=== PATIENT | female | born 1980 | race Caucasian/White ===

== ENCOUNTER 2021-05-16 05:30 | Inpatient (IN) ==
--- NOTE | 2021-05-11 09:59 | Anesthesiology Consultation ---
Date of Service May 11, 2021 Assessment & Plan Chart Review Chart Review: Acceptable Risk for Surgery and Patient NOT seen in Pre Admission Testing History Surgery Operation Date: 05/16/21 07:30 Proposed Procedures p Section (Delivery of Baby Through Abdominal Incision) - Becki Heath MD Height/Weight Height: 5 ft 7 in Weight: 83.007 kg Allergies Allergy/AdvReac Type Severity Reaction Status Date / Time No Known Allergies Allergy Verified 05/11/21 09:54 Medications Home Medications Medication Instructions Recorded Confirmed Last Taken cetirizine 10 mg capsule (Zyrtec) 10 mg PO DAILY PRN 10/08/20 05/11/21 Unknown multivitamin 1 tab PO QAM 10/08/20 05/11/21 Unknown omeprazole 20 mg PO QAM 11/09/20 05/11/21 Unknown acetone (urine) test (Ketone Urine #50 ea 11/18/20 05/11/21 Unknown Test) blood sugar diagnostic (OneTouch #150 ea 11/18/20 05/11/21 Unknown Ultra Blue Test Strip) lancets 33 gauge (OneTouch Delica #150 ea 11/18/20 05/11/21 Unknown Lancets) pen needle, diabetic 32 gauge x #100 ea 04/08/21 05/11/21 Unknown 5/32" (BD Ultra-Fine Radha Pen Needle) guaifenesin [Robitussin Chest 20 ml PO TID PRN 05/09/21 05/11/21 Unknown Congestion] insulin NPH isoph U-100 human 100 30 unit SUBCUT QPM 05/11/21 05/11/21 Unknown unit/mL (3 mL) subcutaneous pen (Novolin N Flexpen) magnesium 200 mg tablet 200 mg PO QAM 05/11/21 05/11/21 Unknown Past Medical History Medical History GERD (gastroesophageal reflux disease) Gestational diabetes ON INSULIN History of COVID-19 DX'D EARLY 01/[address] THRU [place]-FATIGUE, SORE THROAT,CHILLS, DECREASED SMELL, COUGH-RECOVERED AT HOME-SYMPTOMS RESOLVED Ulnar neuropathy of right upper extremity RESOLVED Past Family History Family History Mother Glaucoma Hypertension Father Glaucoma Hypertension Grandmother (Maternal) Family history of diabetes mellitus Past Surgical History Surgical History H/O cone biopsy of cervix S/P section x2 S/P knee surgery MULTIPLE Social History Smoking Status: Former smoker Do You Dip or Chew Tobacco: No Smoking End Date: QUIT 2010 Hx Alcohol Use: Yes Alcohol type: beer, wine and hard liquor alcohol intake frequency: a few times a week Alcohol Intake Frequency Comment: NOT Hx Substance Use: No
[2021-05-16] MEDS ORDERED: LACTATED RINGER'S 1,000 ML IV SCH ×2 (05:45→12:00)
[2021-05-16 06:06] LABS: Basophils # (auto) 0.03 K/uL (0-0.2); Basophils % (auto) 0.4 %; Eosinophils # (auto) 0.19 K/uL (0-0.5); Eosinophils % (auto) 2.3 %; Hemoglobin 11.1 g/dL (12.0-16.0); Immature Granulocytes # (auto) 0.01 K/uL (0.00-0.02); Immature Granulocytes % (auto) 0.1 %; Lymphocytes # (auto) 1.43 K/uL (1.2-3.4); Mean Corpuscular Hemoglobin 26.4 pg (25-34); Mean Corpuscular Hgb Conc 31.7 g/dL (32-36); Mean Corpuscular Volume 83.1 fL (80-100); Mean Platelet Volume 12.9 fL (7.4-10.4); Monocytes # (auto) 0.55 K/uL (0.11-0.59); Monocytes % (auto) 6.5 %; Neutrophils # (auto) 6.21 K/uL (1.4-6.5); Neutrophils % (auto) 73.7 %; Platelet Count 231 K/uL (130-400); RDW Coefficient of Variation 14.4 % (11.5-14.5); RDW Standard Deviation 43.7 fL (36.4-46.3); Red Blood Count 4.21 M/uL (4.2-5.4); White Blood Count 8.42 K/uL (4.8-10.8)
[2021-05-16] MEDS ORDERED: ceFAZolin 2000MG 2,000 MG/15 ML SYR IV STA (06:09)
[2021-05-16] MEDS ORDERED: CITRIC ACID/SODIUM CITRATE 15 ML UDC PO STA (06:09)
[2021-05-16] MEDS ORDERED: MoRPHine SULFATE PF 1 MG/ML 10 ML AMP/VIAL ONE (07:17)
[2021-05-16] MEDS ORDERED: ePHEDrine sulfate 50 MG/ML AMP IV PRN (07:45)
[2021-05-16] MEDS ORDERED: ONDANSETRON INJ 2 MG/ML 2 ML VIAL IV PRN (07:45)
[2021-05-16] MEDS ORDERED: NALOXONE HCL 0.08 MG in SYRINGE 1.8 ML IV PRN (07:45)
[2021-05-16] MEDS ORDERED: HYDROmorphone INJ 0.5 MG/0.5 ML SYR IV PRN (07:45)
[2021-05-16] MEDS ORDERED: NO NARCOTICS OR SEDATIVES SCH (07:45)
[2021-05-16] MEDS ORDERED: SODIUM CHLORIDE 0.9% 1000ML 1,000 ML IV SCH (07:45)
[2021-05-16] MEDS ORDERED: NALOXONE HCL 0.4 MG/1 ML VIAL/CARP IV PRN (07:45)
[2021-05-16] MEDS ORDERED: KETOROLAC 30 MG/ML VIAL IV PRN (07:45)
[2021-05-16] MEDS ORDERED: NALBUPHINE HCL INJ 10 MG/ML AMP IV PRN (07:45)
[2021-05-16] MEDS ORDERED: DC INTRASPINAL MORPHINE SCH (07:45)
[2021-05-16] MEDS ORDERED: diphenhydrAMINE 50 MG/ML VIAL IV PRN (07:45)
[2021-05-16] MEDS ORDERED: LACTATED RINGER'S 500 ML IV PRN (07:45)
[2021-05-16] MEDS ORDERED: PROMETHAZINE HCL 12.5 MG in SODIUM CHLORIDE 0.9% 50 ML IV PRN (07:45)
[2021-05-16] MEDS ORDERED: METOCLOPRAMIDE HCL 10 MG in SODIUM CHLORIDE 0.9% 50 ML IV PRN (07:45)
[2021-05-16] MEDS ORDERED: NALOXONE HCL 1 MG in SODIUM CHLORIDE 0.9% 1000ML 1,000 ML IV PRN (07:45)
[2021-05-16] MEDS ORDERED: MEPERIDINE HCL 25 MG/ML CARP/VIAL IV PRN (07:45)
[2021-05-16] MEDS ORDERED: MoRPHine SULFATE 2 MG/ML CARP IV PRN (07:45)
[2021-05-16] MEDS ORDERED: MoRPHine SULFATE PF 1 MG/ML 10 ML AMP/VIAL INT SPINAL ONE (07:45)
--- NOTE | 2021-05-16 08:34 | History & Physical Bridge Note ---
Date of Service May 16, 2021 History & Physical Bridge Note I have examined the patient, reviewed the History & Physical and in the interval since the performance of the History & Physical I have noted the following changes of clinical significance: no changes noted. 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 She had FSBG checked and was asked to notify us of symptoms of hypoglycemia if they occurred, so glucose could be added to her IV if needed, as she is NPO and GDM. Now, at 0830, that infant is about to be transferred via air, and we will then be able to proceed with Sydnie's case. She has been kept informed, and we will proceed as soon as the peds team is available. There are no changes to Sydnie's own medical situation and no new questions from herself or her FOB this morning.
[2021-05-16] MEDS ORDERED: BENZOCAINE 20% AER SPR 82.5 GM CAN EXT PRN (11:49)
[2021-05-16] MEDS ORDERED: SENNA 8.6 MG TAB PO PRN (11:49)
[2021-05-16] MEDS ORDERED: DIPHTHERIA/TETANUS/PERTUSSIS 0.5 ML SYR/VIAL IM ONE (11:49)
[2021-05-16] MEDS ORDERED: SUPERCREAM 0.870% 15 GM JAR EXT PRN (11:49)
[2021-05-16] MEDS ORDERED: HYDROCORTISONE ACETATE 25 MG SUPP PR PRN (11:49)
[2021-05-16] MEDS ORDERED: MAGNESIUM HYDROXIDE SUSP 30 ML UDC PO PRN (11:49)
[2021-05-16] MEDS ORDERED: OXYTOCIN 20 UNITS in LACTATED RINGER'S 1,000 ML IV SCH (12:00)
--- NOTE | 2021-05-16 12:05 | Operative Report ---
PG Post Operative Report Pre & Post Diagnosis Operation Date: 05/16/21 07:30 1) Prior section x2 2) Desires sterilization I identified the patient and participated in the time-out.: Yes Procedure Operation Date: 05/16/21 07:30 Actual Procedures Repeat Low Transverse Section Bilateral Tubal Ligation via modified Natalio Surgeon Becki Heath MD Manager Employee Benefits Desirae Estimated Blood Loss 600 Findings Consistent with Post-Op Diagnosis As below Specimens Placenta for hold, cord blood Anesthesia Type Spinal Complications none Disposition Accompanied Patient To Recovery: Yes Disposition: L&D Description of Procedure The patient was placed operating table in the supine position with a leftward tilt. She was prepped and draped in standard sterile fashion. The anesthetic was tested and found to be adequate. A time-out was held, identifying correct patient, procedure, positioning and preoperative antibiotics. There were no concerns. A Pfannenstiel skin incision was made with a knife, excising the prior scar, and taken down to the underlying layer of fascia. The fascia was incised in the midline with the knife and taken out laterally with scissors. The superior edge of the fascial incision was grasped, elevated and dissected off the underlying rectus both superiorly and inferiorly. The muscles were bluntly in the midline. The peritoneum was entered bluntly. The incision was then stretched. The bladder retractor was placed. The vesicouterine peritoneum was identified, entered with scissors and taken out laterally with scissors. The bladder flap was created digitally. A hysterotomy incision was created transversely in the lower uterine segment, final entry being accomplished in a blunt manner with the through operator's fingers. Clear amniotic fluid was encountered. The through operator's hand was used to elevate the head to the hysterotomy. The head was delivered using mild fundal pressure, and the shoulders and body followed without difficulty. The cord was clamped and cut and the was then handed off to the awaiting hadoop analyst. Cord blood was obtained. The placenta was Manually extracted. The uterus was exteriorized and cleared of all clot and debris with moistened laparotomy sponges. The hysterotomy incision was repaired in two layers, the first in a running locked layer, the second in an imbricating layer. The ovaries and tubes were seen to be normal bilaterally. Modified [place] method was used to isolate a knuckle of each fallopian tube with a double-ligature of chromic gut suture, then excise the knuckle of fallopian tube sharply. Excellent hemostasis was noted at the cut ends. The uterus was gently replaced in the abdomen. A final inspection of the hysterotomy revealed good hemostasis. The rectus muscles were allowed to reap proximate naturally. The fascia was then reapproximated with 1 Vicryl in a running nonlocked manner. The fascia was examined and found to be free of defect following closure. The subcutaneous tissue was copiously irrigated and reapproximated with 0-chromic, then the skin edges were closed with 4-0 monocryl in a subcuticular fashion. A dermabond dressing was applied. The conner was found to be draining clear yellow urine at completion of the procedure. I attest to the content of the Intraoperative Record and any orders documented therein. Any exceptions are noted below. I attest to the content of the Intraoperative Record and any orders documented therein. Any exceptions are noted below. OB Procedure Charges [id number] Add on Tubal for C/S
[2021-05-16] MEDS ORDERED: OXYTOCIN 10 UNITS/ML VIAL ONE (12:20)
[2021-05-16] MEDS ORDERED: ePHEDrine sulfate 50 MG/ML SYR ONE (12:20)
[2021-05-16] MEDS ORDERED: KETOROLAC 30 MG/ML VIAL ONE (12:58)
[2021-05-16] MEDS: SIMETHICONE 80 MG CHEW PO SCH ×3 (13:06→20:33)
--- NOTE | 2021-05-16 15:12 | Anesthesiology Progress Note ---
Date of Service May 16, 2021 Anesthesia Post Procedure Vital Signs Vital Signs: Temp Pulse Resp BP Pulse Ox 05/16/21 15:08 82 97 05/16/21 15:03 75 97 05/16/21 14:58 76 98 05/16/21 14:53 83 97 05/16/21 14:48 80 97 05/16/21 14:43 78 98 05/16/21 14:38 81 97 05/16/21 14:33 83 97 05/16/21 14:28 75 98 05/16/21 14:26 68 125/78 05/16/21 14:23 66 98 05/16/21 14:18 74 99 05/16/21 14:16 36.1 C L 70 128/80 05/16/21 14:13 65 98 05/16/21 14:08 76 98 05/16/21 14:06 76 120/81 05/16/21 14:03 76 98 05/16/21 13:58 80 98 05/16/21 13:56 73 123/80 05/16/21 13:53 81 98 05/16/21 13:49 36.2 C L 05/16/21 13:48 76 99 05/16/21 13:46 61 18 117/81 05/16/21 13:43 61 98 05/16/21 13:38 70 98 05/16/21 13:37 36.4 C L 18 05/16/21 13:36 66 120/80 05/16/21 13:35 36.4 C L 05/16/21 13:33 72 98 05/16/21 13:28 67 97 05/16/21 13:26 67 128/79 05/16/21 13:23 66 97 05/16/21 13:20 36.1 C L 05/16/21 13:18 76 95 05/16/21 13:16 36.1 C L 69 131/86 05/16/21 13:13 76 98 05/16/21 13:08 63 96 05/16/21 13:06 75 18 129/81 05/16/21 13:05 36.4 C L 05/16/21 13:03 65 96 05/16/21 12:59 63 126/81 05/16/21 12:58 65 96 05/16/21 12:56 62 16 126/86 05/16/21 12:53 75 98 05/16/21 12:48 35.9 C L 68 97 05/16/21 12:46 69 16 123/79 05/16/21 12:43 66 97 05/16/21 12:38 71 98 05/16/21 12:36 77 18 127/84 05/16/21 12:35 35.9 C L 05/16/21 12:33 68 98 05/16/21 12:28 73 99 05/16/21 12:26 74 16 122/71 05/16/21 12:23 72 98 05/16/21 12:18 79 98 05/16/21 12:17 74 94 05/16/21 12:16 35.9 C L 18 05/16/21 12:15 75 123/77 05/16/21 12:13 83 98 05/16/21 06:56 82 135/92 05/16/21 06:18 80 128/87 05/16/21 06:08 87 133/92 05/16/21 05:58 36.5 C 18 05/16/21 05:47 75 134/95 Pain Intensity Ribs: Pain Intensity: 7 Lower Abdomen: Pain Intensity: 6 Transfer of Care Handoff Completed per policy Notes Mental Status: alert / awake / arousable and participated in evaluation Patient Amnestic to Procedure: Yes Nausea / Vomiting: adequately controlled Pain: adequately controlled Airway Patency, RR, SpO2: stable & adequate BP & HR: stable & adequate Hydration State: stable & adequate Neuraxial Anesthesia: was administered and sensory block is resolving Anesthetic Complications: no major complications apparent
[2021-05-16] MEDS ORDERED: D5W AND LACTATED RINGERS 1,000 ML IV SCH (17:30)
[2021-05-16] MEDS ORDERED: OXYTOCIN 20 UNITS in D5W AND LACTATED RINGERS 1,000 ML IV SCH (18:30)
[2021-05-16] MEDS ORDERED: Nursing to Pharmacy Communication SCH (19:00)
[2021-05-16] MEDS: DOCUSATE SODIUM 100 MG CAP PO SCH (20:33)
[2021-05-17] MEDS ORDERED: DC INTRASPINAL MORPHINE SCH (01:45)
[2021-05-17] MEDS ORDERED: NALOXONE HCL 0.4 MG/1 ML VIAL/CARP IV PRN (01:46)
[2021-05-17] MEDS ORDERED: KETOROLAC 30 MG/ML VIAL IV PRN ×2 (01:46)
[2021-05-17] MEDS ORDERED: diphenhydrAMINE 50 MG/ML VIAL IV PRN ×2 (01:46)
[2021-05-17] MEDS ORDERED: ONDANSETRON INJ 2 MG/ML 2 ML VIAL IV PRN (01:46)
[2021-05-17] MEDS ORDERED: HYDROmorphone INJ 0.5 MG/0.5 ML SYR IV PRN (01:46)
[2021-05-17] MEDS ORDERED: PROMETHAZINE HCL 12.5 MG in SODIUM CHLORIDE 0.9% 50 ML IV PRN (01:46)
[2021-05-17] MEDS ORDERED: MEPERIDINE HCL 25 MG/ML CARP/VIAL IV PRN (01:46)
[2021-05-17] MEDS ORDERED: NALOXONE HCL 1 MG in SODIUM CHLORIDE 0.9% 1000ML 1,000 ML IV PRN (01:46)
[2021-05-17] MEDS ORDERED: MEPERIDINE HCL 50 MG/ML CARP IV PRN (01:46)
[2021-05-17] MEDS ORDERED: NALBUPHINE HCL INJ 10 MG/ML AMP IV PRN (01:46)
[2021-05-17] MEDS ORDERED: METOCLOPRAMIDE HCL 10 MG in SODIUM CHLORIDE 0.9% 50 ML IV PRN (01:46)
[2021-05-17] MEDS ORDERED: diphenhydrAMINE Capsule 25 MG CAP PO PRN (01:46)
[2021-05-17] MEDS ORDERED: MoRPHine SULFATE 2 MG/ML CARP IV PRN (01:46)
[2021-05-17] MEDS ORDERED: NALOXONE HCL 0.08 MG in SYRINGE 1.8 ML IV PRN (01:46)
[2021-05-17] MEDS ORDERED: PROMETHAZINE HCL 25 MG in SODIUM CHLORIDE 0.9% 50 ML IV PRN (01:46)
[2021-05-17] MEDS: oxyCODONE/ACETAMINOPHEN 5mg/325mg TAB PO PRN ×3 (05:23→19:50)
[2021-05-17] MEDS: IBUPROFEN 600 MG TAB PO PRN ×3 (05:23→17:55)
--- NOTE | 2021-05-17 06:19 | Obstetrical Progress Note ---
Date of Service <Catherine Benz MD - Last Filed: 05/17/21 07:11> May 17, 2021 Assessment & Plan <Catherine Benz MD - Last Filed: 05/17/21 07:11> (1) delivery delivered: 40 yo , complicated by AMA and GDMA2, now POD1 from repeat LTCS at 39wk1d -Continue routine care -Vitals reviewed- HDS, afebrile -Blood type O+, GBS-, Rubella immune -Encourage ambulation -Advance to regular diet -Pain controlled with ibuprofen, oxycodone PRN -Encourage , has breast pump at home -Hgb 9.6, asymptomatic. Continue to monitor. -F/u in 6 weeks with OB <Savannah Merrill MD, FACOG - Last Filed: 05/17/21 08:17> (1) delivery delivered: Subjective <Catherine Benz MD - Last Filed: 05/17/21 07:11> Ambulation: ambulating normally Voiding: no voiding problems Passing Gas:: Yes Diet Tolerance:: regular diet Lochia:: Small Feeding Type:: breast feeding Current Pain Level(1-10): 4 Pt doing well overall without any acute complaints or distress. Reports minor soreness around incision with 4/10 pain that is relieved by PRN medications. Review of Systems Denies fevers/chills. Denies dyspnea, cough. Denies chest pain. Denies breast pain or discharge. Denies dysuria. Denies headache. Denies back pain. Physical Exam <Cahterine Benz MD - Last Filed: 05/17/21 07:11> General: Alert, oriented, no acute distress Cardiac: Regular rate and rhythm, normal S1, S2. No murmurs appreciated. Respiratory: Clear to auscultation b/l with good air flow entry, symmetric chest rise and fall. No wheezes or crackles. No increased work of breathing or accessory muscle use Abdomen: Slightly tender around incision, soft, nondistended, no guarding or rebound. Fundus firm and palpable at 1 cm below umbilicus. Surgical incision healing well- clean, dry and intact without erythema, warmth or drainage Skin: No rashes or lesions Extremities: Warm, dry, well-perfused with capillary refill <2s b/l. No lower extremity edema, erythema or swelling. Negative Ursula's sign b/l. Results & Data ([facility]) <Catherine Benz MD - Last Filed: 05/17/21 07:11> Vital Signs (Past 12 Hours) Vital Signs Temp Pulse Resp BP Pulse Ox 05/17/21 04:30 16 97 05/17/21 03:00 36.6 C 80 20 120/71 97 05/17/21 02:05 16 96 05/17/21 01:20 16 99 05/17/21 00:10 16 97 05/16/21 23:00 36.6 C 82 16 137/78 97 05/16/21 22:15 16 96 05/16/21 21:15 16 97 05/16/21 20:10 16 98 05/16/21 19:20 36.4 C L 84 16 138/83 97 05/16/21 18:49 16 98 <Savannah Merrill MD, FACOG - Last Filed: 05/17/21 08:17> Co-Signing Physician Notes Resident Physician Supervision Note: I interviewed and examined the patient. Discussed with Dr. Benz and agree with findings and plan as documented in the note. Any exceptions or clarifications are listed here: Doing well. No issues. routine ppd 1 care. Documented By: Savannah Merrill MD, FACOG Resident Activity Tracking <Catherine Benz MD - Last Filed: 05/17/21 07:11> Resident Involvement: Resident Care Provided Care Provided: OB Delivery
[2021-05-17 06:51] LABS: Basophils # (auto) 0.02 K/uL (0-0.2); Basophils % (auto) 0.2 %; Eosinophils # (auto) 0.13 K/uL (0-0.5); Eosinophils % (auto) 1.5 %; Hematocrit (blood only) 30.3 % (37-47); Hemoglobin 9.6 g/dL (12.0-16.0); Immature Granulocytes # (auto) 0.01 K/uL (0.00-0.02); Immature Granulocytes % (auto) 0.1 %; Lymphocytes # (auto) 0.94 K/uL (1.2-3.4); Lymphocytes % (auto) 10.7 %; Mean Corpuscular Hemoglobin 26.2 pg (25-34); Mean Corpuscular Hgb Conc 31.7 g/dL (32-36); Mean Corpuscular Volume 82.6 fL (80-100); Mean Platelet Volume 12.6 fL (7.4-10.4); Monocytes # (auto) 0.49 K/uL (0.11-0.59); Monocytes % (auto) 5.6 %; Neutrophils # (auto) 7.17 K/uL (1.4-6.5); Neutrophils % (auto) 81.9 %; Platelet Count 196 K/uL (130-400); RDW Coefficient of Variation 14.5 % (11.5-14.5); RDW Standard Deviation 43.7 fL (36.4-46.3); Red Blood Count 3.67 M/uL (4.2-5.4); White Blood Count 8.76 K/uL (4.8-10.8)
[2021-05-17] MEDS: SIMETHICONE 80 MG CHEW PO SCH ×4 (08:18→19:48)
[2021-05-17] MEDS: DOCUSATE SODIUM 100 MG CAP PO SCH ×2 (08:19→19:48)
[2021-05-17] MEDS: PRENATAL VITAMIN 1 TAB PO SCH (08:19)
[2021-05-17] MEDS: FERROUS SULFATE 325 MG TAB PO SCH (08:19)
[2021-05-17] MEDS ORDERED: bisacodyL 5 MG TABEC PO SCH (20:00)
[2021-05-18] MEDS: IBUPROFEN 600 MG TAB PO PRN ×4 (02:38→19:50)
[2021-05-18] MEDS: oxyCODONE/ACETAMINOPHEN 5mg/325mg TAB PO PRN ×4 (02:39→19:50)
--- NOTE | 2021-05-18 05:52 | Obstetrical Progress Note ---
Date of Service <Catherine Benz MD - Last Filed: 05/18/21 06:28> May 18, 2021 Assessment & Plan <Catherine Benz MD - Last Filed: 05/18/21 06:28> (1) delivery delivered: 40 yo , complicated by AMA and GDMA2, now POD2 from repeat LTCS at 39wk1d -Continue routine care. October d/c home today with script for oxycodone -Abdominal binder offered for soreness relief -Vitals reviewed- HDS, afebrile -Blood type O+, GBS-, Rubella immune -Encourage ambulation -Pain controlled with ibuprofen, oxycodone PRN -Encourage , has breast pump at home -F/u in 6 weeks with OB <Kerry Bridges MD - Last Filed: 05/18/21 07:10> (1) delivery delivered: Subjective <Catherine Benz MD - Last Filed: 05/18/21 06:28> Ambulation: ambulating normally Voiding: no voiding problems Passing Gas:: Yes Diet Tolerance:: regular diet Lochia:: Small Feeding Type:: breast feeding Current Pain Level(1-10): 0 Pt feels well overall, no acute complaints or distress. Reports some leg swelling and soreness but ambulating well, pain relieved with medications. Having some difficulty . Review of Systems +Leg swelling and soreness Denies fevers/chills. Denies dyspnea, cough. Denies chest pain. Denies breast pain or discharge. Denies dysuria. Denies headache. Denies back pain. Physical Exam <Catherine Benz MD - Last Filed: 05/18/21 06:28> General: Alert, oriented, no acute distress Cardiac: Regular rate and rhythm, normal S1, S2. No murmurs appreciated. Respiratory: Clear to auscultation b/l with good air flow entry, symmetric chest rise and fall. No wheezes or crackles. No increased work of breathing or accessory muscle use Abdomen: Soft, nondistended, no guarding or rebound. Fundus firm and palpable at 2 cm below umbilicus. Surgical incision healing well- clean, dry and intact without erythema, warmth or drainage Skin: No rashes or lesions Extremities: Mild b/l lower extremity edema without erythema, negative Ursula's sign b/l. Results & Data ([facility]) <Catherine Benz MD - Last Filed: 05/18/21 06:28> Vital Signs (Past 12 Hours) Vital Signs Temp Pulse Resp BP 05/17/21 23:35 36.7 C 79 18 130/79 <Kerry Bridges MD - Last Filed: 05/18/21 07:10> Co-Signing Physician Notes Resident Physician Supervision Note: I was present with Dr. Lopez during the history and exam. I discussed the case with the resident and agree with the findings and plan as documented in the note. Any exceptions or clarifications are listed here: POD2, doing well and meeting all pp milestones. Discussed abd binder for movement discomfort relief. Desires d/c home today if baby is able to be discharged but may be under bili lights, stable to do so if desires Documented By: Kerry Bridges MD Resident Activity Tracking <Catherine Benz MD - Last Filed: 05/18/21 06:28> Resident Involvement: Resident Care Provided Care Provided: OB Delivery
[2021-05-18 07:07] LABS: Hematocrit (blood only) 30.3 % (37-47); Hemoglobin 9.6 g/dL (12.0-16.0)
[2021-05-18] MEDS: DOCUSATE SODIUM 100 MG CAP PO SCH ×2 (08:48→19:49)
[2021-05-18] MEDS: PRENATAL VITAMIN 1 TAB PO SCH (08:48)
[2021-05-18] MEDS: SIMETHICONE 80 MG CHEW PO SCH ×4 (08:48→19:50)
[2021-05-18] MEDS: FERROUS SULFATE 325 MG TAB PO SCH (08:48)
[2021-05-18] MEDS ORDERED: bisacodyL 10 MG SUPP PR PRN (11:49)
--- NOTE | 2021-05-19 06:49 | Obstetrical Progress Note ---
Date of Service <Catherine Benz MD - Last Filed: 05/19/21 08:02> May 19, 2021 Assessment & Plan <Catherine Benz MD - Last Filed: 05/19/21 08:02> (1) delivery delivered: 40 yo , complicated by AMA and GDMA2, now POD2 from repeat LTCS at 39wk1d -D/c home today with script for oxycodone -Vitals reviewed- HDS, afebrile -Blood type O+, GBS-, Rubella immune -Encourage ambulation -Pain controlled with ibuprofen, oxycodone PRN -Encourage , has breast pump at home -F/u in 6 weeks with OB <Zully Durán MD, FACOG - Last Filed: 05/19/21 08:16> (1) delivery delivered: Subjective <Catherine Benz MD - Last Filed: 05/19/21 08:02> Ambulation: ambulating normally Voiding: no voiding problems Passing Gas:: Yes Diet Tolerance:: regular diet Lochia:: Small Feeding Type:: breast feeding Current Pain Level(1-10): 0 Pt feels well overall, no acute complaints or distress. Pain relieved with medication. Still having some difficulty . Review of Systems +Leg swelling and soreness Denies fevers/chills. Denies dyspnea, cough. Denies chest pain. Denies breast pain or discharge. Denies dysuria. Denies headache. Denies back pain. Physical Exam <Catherine Benz MD - Last Filed: 05/19/21 08:02> General: Alert, oriented, no acute distress Cardiac: Regular rate and rhythm, normal S1, S2. No murmurs appreciated. Respiratory: Clear to auscultation b/l with good air flow entry, symmetric chest rise and fall. No wheezes or crackles. No increased work of breathing or accessory muscle use Abdomen: Soft, nondistended, no guarding or rebound. Fundus firm and palpable at 2 cm below umbilicus. Surgical incision healing well- clean, dry and intact without erythema, warmth or drainage Skin: No rashes or lesions Extremities: Mild b/l lower extremity edema without erythema, negative Ursula's sign b/l. Results & Data ([facility]) <Catherine Benz MD - Last Filed: 05/19/21 08:02> Vital Signs (Past 12 Hours) Vital Signs Temp Pulse Resp BP Pulse Ox 05/18/21 23:00 36.5 C 80 18 131/89 100 05/18/21 19:45 36.6 C 76 18 132/79 99 <Zully Durán MD, FACOG - Last Filed: 05/19/21 08:16> Co-Signing Physician Notes Resident Physician Supervision Note: I interviewed and examined the patient. Discussed with Dr. Benz and agree with findings and plan as documented in the note. Any exceptions or clarifications are listed here: doing well, ready to go home. baby good. pain well controlled with meds. instructions reviewed. f/u 6 wk pp check. ff 2 down, incision c/d/i, ext nt calves. pod #3 Documented By: Zully Durán MD, FACOG Resident Activity Tracking <Catherine Benz MD - Last Filed: 05/19/21 08:02> Resident Involvement: Resident Care Provided Care Provided: OB Delivery
[2021-05-19] MEDS: oxyCODONE/ACETAMINOPHEN 5mg/325mg TAB PO PRN ×2 (08:11→12:16)
[2021-05-19] MEDS: FERROUS SULFATE 325 MG TAB PO SCH (08:11)
[2021-05-19] MEDS: DOCUSATE SODIUM 100 MG CAP PO SCH (08:11)
[2021-05-19] MEDS: PRENATAL VITAMIN 1 TAB PO SCH (08:11)
[2021-05-19] MEDS: SIMETHICONE 80 MG CHEW PO SCH ×2 (08:11→12:16)
[2021-05-19] MEDS: IBUPROFEN 600 MG TAB PO PRN ×2 (08:11→12:16)
--- NOTE | 2021-05-21 12:09 | Discharge Summary ---
Date of Service May 21, 2021 Discharge Data Consultations 05/16/21 05:36 Consult Anesthesiology Stat Procedures Performed Operation Date: 05/16/21 07:30 Actual Procedures p Section (Delivery of Baby Through Abdominal Incision) of live male child at 1130 in OR#3 - Becki Heath MD s Bilateral Tubal Ligation - Becki Heath MD Hospital Course (1) delivery delivered: 40 yo , complicated by AMA and GDMA2, now POD2 from repeat LTCS at 39wk1d -D/c home today with script for oxycodone -Vitals reviewed- HDS, afebrile -Blood type O+, GBS-, Rubella immune -Encourage ambulation -Pain controlled with ibuprofen, oxycodone PRN -Encourage , has breast pump at home -F/u in 6 weeks with OB Coding Level of Care Code None Diagnoses delivery delivered O82
== END 2021-05-19 13:15 | disposition home or self-care (01) | DRG 785 ==
LOC: 4S1 05:30 → EDSTATUS 09:20 → 4S2 15:45
PROC: M.PPTLD (2021-05-16 07:30)
DX: Z83.3 Family history of diabetes mellitus; O09.523 Supervision of elderly multigravida, third trimester; O99.62 Diseases of the digestive system complicating childbirth; Z86.16 Personal history of COVID-19; K21.9 Gastro-esophageal reflux disease without esophagitis; Z87.891 Personal history of nicotine dependence; O34.211 Maternal care for low transverse scar from previous cesarean delivery; Z3A.39 39 weeks gestation of pregnancy; Z30.2 Encounter for sterilization; Z37.0 Single live birth; Z79.899 Other long term (current) drug therapy; O24.424 Gestational diabetes mellitus in childbirth, insulin controlled